=== PATIENT | male | born 1995 | race African-American/Black ===

== ENCOUNTER 2018-07-31 14:59 | Emergency (ER) | payer SELFPAY ==
[~2018-07-31] VITALS: Ht 167.6 cm; Wt 68.0 kg
[2018-07-31 15:20] VITALS: BP 129/74
== END 2018-07-31 15:45 | disposition home or self-care (01) ==
LOC: ER 15:03
DX: M54.2 Cervicalgia (principal); V49.49XA Driver injured in collision with other motor vehicles in traffic accident, initial encounter; Y93.89 Activity, other specified; Y92.413 State road as the place of occurrence of the external cause; Y99.8 Other external cause status